=== PATIENT | male | born 1960 | race Caucasian/White ===

== ENCOUNTER 2016-06-12 13:02 | Emergency (ER) | payer BC, OTHER ==
[2016-06-12] MEDS ORDERED: OXYCODONE/ACETAMINOPHEN 5/325 MG TABLET ONE (13:43)
[2016-06-12] MEDS ORDERED: KETOROLAC TROMETHAMINE 60 MG/2 ML VIAL ONE (13:43)
[2016-06-12] MEDS ORDERED: ONDANSETRON 4 MG ODT TAB ONE (13:43)
--- NOTE | 2016-06-12 14:24 | RAD ---
EXAMINATION:CHEST - 2 VIEWS CLINICAL INDICATION: Left lower rib pain. Vomiting this morning. COMPARISON:none FINDINGS: The cardiomediastinal silhouette is within normal limits. There is no adenopathy identified. There is no pleural effusion. There are low lung volumes with mild basilar atelectasis. The osseous structures are unremarkable for age. IMPRESSION: Poor inspiratory effort with mild basilar atelectasis. No infiltrate or effusion is identified. No displaced fracture is seen.
== END 2016-06-12 15:14 | disposition home or self-care (01) ==
LOC: ED 13:02
DX: R07.81 Pleurodynia (principal); R11.10 Vomiting, unspecified
CPT/HCPCS: 71020; 99283 ×2; 96372; A9270 ×2; J1885